=== PATIENT | male | born 1985 | race Caucasian/White ===

== ENCOUNTER 2021-11-03 21:22 | Emergency (ER) | payer SELFPAY ==
[~2021-11-03] VITALS: Ht 185.4 cm; Wt 81.2 kg
--- NOTE | 2021-11-03 21:37 | PHYS DOC ---
Adult General Chief Complaint Chief Complaint: CHEST PAIN HPI HPI Patient is a 35-year-old male who presents with back pain, shoulder pain, chest pain and difficulty breathing for the last day denies any recent traumas or travels, illness, fevers, rash, abdominal pain, nausea, vomiting, diarrhea. Denies any numbness/weakness/tingling. Denies any trouble sitting, standing or walking. Denies any family history of early cardiac disease. Denies any history of VTE. Review of Systems Review of Systems Review of systems otherwise unremarkable except noted by HPI Physical Exam Physical Exam Constitutional: Well developed, well nourished, no acute distress, non-toxic appearance. [] HENT: Normocephalic, atraumatic, bilateral external ears normal, oropharynx moist, no oral exudates, nose normal. [] Eyes: conjunctiva normal, no discharge. [] Neck: Normal range of motion, no tenderness, supple, no stridor. [] Cardiovascular:Heart rate regular rhythm, no murmur [] Lungs & Thorax: Bilateral breath sounds clear to auscultation [] Abdomen: soft, no tenderness, no masses, no pulsatile masses. [] Skin: Warm, dry, no erythema, no rash. [] Back: No midline tenderness throughout, with no step-offs deformities or bruising, range of motion normal Extremities: No tenderness, no cyanosis, no clubbing, ROM intact, no edema. [] Neurologic: Alert and oriented X 3, normal motor function, normal sensory func tion, able to sit, stand and walk without issue no focal deficits noted. [] Psychologic: Affect normal, judgement normal, mood normal. [] EKG EKG [] Radiology/Procedures Radiology/Procedures [] Heart Score C/O Chest Pain: Yes HEART Score for Chest Pain: HEART Score for Chest Pain Response (Comments) Value History Slighlty/Non-Suspicious 0 ECG Normal 0 Age < 45 0 Risk Factors 1 or 2 Risk Factors 1 Troponin < Normal Limit 0 Total 1 Risk Factors: Risk Factors: DM, Current or recent (<one month) smoker, HTN, HLP, family history of CAD, obesity. Risk Scores: Risk Factors: DM, Current or recent (<one month) smoker, HTN, HLP, family history of CAD, obesity. Course & Med Decision Making Course & Med Decision Making Patient is a 35-year-old male who presents with back, shoulders, chest pain Vital signs not concerning. Physical exam noted above. EKG with a rate of 79, QRS of 94, QTc of 4 7, no STEMI. Troponin normal. Chest x-ray nonconcerning. Given Toradol and Benadryl. Discussed all findings with patient. Advised to follow-up in the morning with his primary care physician. Gave strict return precautions to the ED. Patient grateful, verbalized understanding and agreed with plan of discharge. Dragon Disclaimer Dragon Disclaimer This electronic medical record was generated, in whole or in part, using a voice recognition dictation system. Departure Departure: Impression: Primary Impression: Back pain Additional Impressions: Shoulder pain Chest pain Disposition: HOME / SELF CARE / HOMELESS Condition: STABLE Referrals: PCP,REA (PCP) KENDRA SEALS MD Patient Instructions: Back Pain, Adult, Chest Pain (Nonspecific), Shoulder Pain Additional Instructions: Thank you for coming into the emergency department tonight and allowing us to take care of you. Please read the attached information carefully go over things we discussed. Please take all your medicines as prescribed by your physician. You can use Tylenol and ibuprofen as needed. You can also use ice. Please follow-up in the morning with your primary care physician update on your ED visit and set up a follow-up. Please come back with new or concerning symptoms as we discussed. Problem Qualifiers LUDWIN SYED MD Nov 03, 2021 21:37
--- NOTE | 2021-11-03 21:50 | RAD ---
Study: XR CHEST 1V Indication: Right-sided chest pain. Comparison: None. Findings: The cardiomediastinal silhouette and sundeep are within normal limits. No localized airspace opacity, pl eural effusion or pneumothorax. Mild interstitial prominence favored bronchovascular crowding from in complete inspiration. Impression: No acute radiographic abnormality of the chest. Electronically signed by: LEEAZAR FLORIAN MD (11/03/2021 9:48 PM) [facility]
[2021-11-03] MEDS ORDERED: KETOROLAC 60 MG/2 ML VIAL. IM ONE (22:45)
[2021-11-03] MEDS ORDERED: diphenhydrAMINE HCL 25 MG CAPSULE PO ONE (22:45)
[2021-11-03 22:53] VITALS: BP 127/74
--- NOTE | 2021-11-03 23:54 | EKG ---
[address] [address] Test Date: 2021-11-03 Test Time: 21:30:37 Pat Name: KRYS KAMINSKI Department: Room: Gender: M Rn Critical Care: : 1985 Requested By: LUDWIN SYED Order Number: [id number] Reading MD: Srikanth Vincent Measurements Intervals [place] Rate: 79 P: 90 HI: 204 QRS: 69 QRSD: 94 T: 66 QT: 354 QTc: 407 Interpretive Statements SINUS RHYTHM NORMAL ECG RI6.02 No previous ECG available for comparison Electronically Signed On 11-13-2021 8:58:57 CDT by Srikanth Vincent
== END 2021-11-03 22:54 | disposition home or self-care (01) ==
LOC: ER 21:22
DX: R07.89 Other chest pain (principal); M54.9 Dorsalgia, unspecified; M25.519 Pain in unspecified shoulder
CPT/HCPCS: 36415; 71045; 84484; 93005; 96372; 99285; J1885; Q0163